=== PATIENT | male | born 1970 | race Caucasian/White ===

== ENCOUNTER 2017-09-18 10:31 | Observation (INO) | payer SELFPAY ==
[~2017-09-18] VITALS: Ht 172.7 cm; Wt 76.0 kg
[~2017-09-18 10:31] MED LIST: MECL-62 PO
[2017-09-18 10:37] VITALS: BP 130/95; PULSE 73; RESP 18; TEMP 98.1; O2SAT 100
[2017-09-18 10:41] VITALS: RESP 18; O2SAT 100
[2017-09-18] MEDS ORDERED: SODIUM CHLORIDE 0.9% FLUSH 10 ML FLUSH IVF PRN (10:45)
--- NOTE | 2017-09-18 11:01 | PD ---
HPI Chief Complaint: Chest Pain Time Seen by Provider: 10:38 Travel History International Travel<30 days: No Contact w/Intl Traveler<30days: No Traveled to known affect area: No History of Present Illness HPI Patient comes in stating that while he was at work he developed chest pain substernal nonradiating, 8 out of 10, associated with diaphoresis, shortness of breath, and was unable to continue working due to the pain. The pain was severe /sharp and pressure-like immediately upon coming on worse level was 8 out of 10 , and approximately 5 minutes or less and the pain resolved and patient was able to return to his normal activities however patient's coworkers noted and asked the patient to come to the ER to get further evaluated. Per patient he states that he had something similar last week as well but he did not seek any care. Allergies to penicillin apparently though he does not recall what the reaction was because it was along. Past medical history: Patient states that he does not have any major medical history nor any surgical history. He did used to have a history of smoking 2 pack per day but according to him he quit last week. PFSH Past Medical History ?: Not Social History Alcohol Use: No Tobacco Use: Yes (quit 2 weeks ago, used to smoke 1 ppd) Substance Use: No Allergies-Medications (Allergen,Severity, Reaction): Coded Allergies: penicillin G (Unverified Allergy, Unknown, 03/24/17) Reported Meds & Prescriptions Reported Meds & Active Scripts Active Hydrochlorothiazide 25 Mg Tab 25 Mg PO DAILY Reported Tylenol (Acetaminophen) 325 Mg Tab 325 Mg PO ONCE PRN Review of Systems General / Constitutional: No: Fever Eyes: No: Visual changes HENT: No: Headaches Cardiovascular: Positive: Chest Pain or Discomfort, Diaphoresis Respiratory: Positive: Shortness of Breath Gastrointestinal: No: Abdominal Pain Genitourinary: No: Dysuria Musculoskeletal: No: Pain Skin: No Rash Neurologic: No: Weakness Psychiatric: No: Depression Endocrine: No: Polydipsia Hematologic/Lymphatic: No: Easy Bruising Physical Exam Narrative GENERAL: SKIN: Warm and dry. HEAD: Atraumatic. Normocephalic. EYES: Pupils equal and round. No scleral icterus. No injection or drainage. ENT: No nasal bleeding or discharge. Mucous membranes pink and moist. NECK: Trachea midline. No JVD. CARDIOVASCULAR: Regular rate and rhythm. RESPIRATORY: No accessory muscle use. Clear to auscultation. Breath sounds equal bilaterally. GASTROINTESTINAL: Abdomen soft, non-tender, nondistended. MUSCULOSKELETAL: Extremities without clubbing, cyanosis, or edema. No obvious deformities. NEUROLOGICAL: Awake and alert. No obvious cranial nerve deficits. Motor grossly within normal limits. Five out of 5 muscle strength in the arms and legs. Normal speech. PSYCHIATRIC: Appropriate mood and affect; insight and judgment normal. Data Data Last Documented VS Vital Signs Date Time Temp Pulse Resp B/P (MAP) Pulse Ox O2 Delivery O2 Flow Rate FiO2 09/18/17 10:41 18 100 Nasal Cannula 2.00 09/18/17 10:37 73 09/18/17 10:37 98.1 Orders Orders Electrocardiogram (09/18/17 10:39) B-Type Natriuretic Peptide (09/18/17 10:39) Ckmb (Isoenzyme) Profile (09/18/17 10:39) Complete Blood Count With Diff (09/18/17 10:39) Comprehensive Metabolic Panel (09/18/17 10:39) D-Dimer (09/18/17 10:39) Prothrombin Time / Inr (Pt) (09/18/17 10:39) Act Partial Throm Time (Ptt) (09/18/17 10:39) Troponin I (09/18/17 10:39) Lipase (09/18/17 10:39) Chest, Single Ap (09/18/17 10:39) Ecg Monitoring (09/18/17 10:39) Iv Access Insert/Monitor (09/18/17 10:39) Oximetry (09/18/17 10:39) Oxygen Administration (09/18/17 10:39) Sodium Chloride 0.9% Flush (Ns Flush) (09/18/17 10:45) CKMB (09/18/17 10:43) CKMB% (09/18/17 10:43) Admit Order (Ed Use Only) (09/18/17 11:59) Labs Laboratory Tests Test 09/18/17 10:43 White Blood Count 7.3 TH/MM3 Red Blood Count 5.10 MIL/MM3 Hemoglobin 14.7 GM/DL Hematocrit 43.4 % Mean Corpuscular Volume 85.1 FL Mean Corpuscular Hemoglobin 28.9 PG Mean Corpuscular Hemoglobin Concent 34.0 % Red Cell Distribution Width 13.6 % Platelet Count 201 TH/MM3 Mean Platelet Volume 10.2 FL Neutrophils (%) (Auto) 54.6 % Lymphocytes (%) (Auto) 31.5 % Monocytes (%) (Auto) 11.4 % Eosinophils (%) (Auto) 1.9 % Basophils (%) (Auto) 0.6 % Neutrophils # (Auto) 4.0 TH/MM3 Lymphocytes # (Auto) 2.3 TH/MM3 Monocytes # (Auto) 0.8 TH/MM3 Eosinophils # (Auto) 0.1 TH/MM3 Basophils # (Auto) 0.0 TH/MM3 CBC Comment DIFF FINAL Differential Comment Prothrombin Time 10.7 SEC Prothromb Time International Ratio 1.1 RATIO Activated Partial Thromboplast Time 27.9 SEC D-Dimer Quantitative (PE/DVT) 0.24 MG/L FEU Blood Urea Nitrogen 18 MG/DL Creatinine 1.31 MG/DL Random Glucose 84 MG/DL Total Protein 7.4 GM/DL Albumin 3.8 GM/DL Calcium Level 9.1 MG/DL Alkaline Phosphatase 103 U/L Aspartate Amino Transf (AST/SGOT) 25 U/L Alanine Aminotransferase (ALT/SGPT) 67 U/L Total Bilirubin 0.3 MG/DL Sodium Level 137 MEQ/L Potassium Level 3.9 MEQ/L Chloride Level 103 MEQ/L Carbon Dioxide Level 24.2 MEQ/L Anion Gap 10 MEQ/L Estimat Glomerular Filtration Rate 59 ML/MIN Total Creatine Kinase 182 U/L Creatine Kinase MB 1.3 NG/ML Troponin I LESS THAN 0.02 NG/ML B-Type Natriuretic Peptide 9 PG/ML Lipase 74 U/L [facility] Medical Decision Making Medical Screen Exam Complete: Yes Emergency Medical Condition: Yes Medical Record Reviewed: Yes Interpretation(s) Pulse ox: Excellent PLEtH wave. 9798% on room air which is within normal limits EKG: Normal sinus rhythm, 81 bpm, normal intervals, non-STEMI pattern noted. Some motion artifact noted. Differential Diagnosis FL versus non-STEMI versus pneumothorax versus PE versus pericardial effusion Narrative Course cbc neg for leukocytosis, anemia or platelet abnl....cmp is wnl and first troponin neg, d dimer neg. ekg nondiagnostic, however with risk factors of smoking, presenting clinical signs and no pcp I believe it most prudent to observe [employer] for further testing Diagnosis Primary Impression: Chest pain, rule out acute myocardial infarction Admitting Information Admitting Physician Requests: Observation Scripts Hydrochlorothiazide (Hydrochlorothiazide) 25 Mg Tab 25 MG PO DAILY for Blood Pressure Management, #30 TAB 1 Refill Prov: Vandana Ordonez 09/18/17 John Gross MD Sep 18, 2017 11:01
[2017-09-18 11:05] LABS: BASOPHIL % 0.6 % (0.0-2.0); EOSINOPHIL # 0.1 TH/MM3 (0-0.4); EOSINOPHIL % 1.9 % (0.0-4.0); HEMATOCRIT 43.4 % (39.0-51.0); HEMOGLOBIN 14.7 GM/DL (13.0-17.0); LYMPH % 31.5 % (9.0-44.0); LYMPHOCYTE # 2.3 TH/MM3 (1.0-4.8); MEAN CELL VOLUME 85.1 FL (80.0-100.0); MEAN CORPUSCULAR HEMOGLOBIN 28.9 PG (27.0-34.0); MEAN PLATELET VOLUME 10.2 FL (7.0-11.0); MONO % 11.4 % (0.0-8.0); MONOCYTE # 0.8 TH/MM3 (0-0.9); NEUT % 54.6 % (16.0-70.0); PLATELET COUNT 201 TH/MM3 (150-450); RED CELL DISTRIBUTION WIDTH 13.6 % (11.6-17.2); WHITE BLOOD COUNT 7.3 TH/MM3 (4.0-11.0)
[2017-09-18] MEDS ORDERED: TYLE325T PO (11:09)
[2017-09-18 11:14] LABS: INTERNATIONAL NORMALIZED RATIO 1.1 RATIO; PROTHROMBIN TIME - PATIENT 10.7 SEC (9.8-11.6)
[2017-09-18 11:16] LABS: D-DIMER 0.24 MG/L FEU (0.00-0.50)
[2017-09-18 11:20] LABS: ALBUMIN 3.8 GM/DL (3.4-5.0); ALT (GPT) 67 U/L (12-78); AST (GOT) 25 U/L (15-37); BICARBONATE 24.2 MEQ/L (21.0-32.0); BLOOD UREA NITROGEN 18 MG/DL (7-18); CALCIUM 9.1 MG/DL (8.5-10.1); CHLORIDE 103 MEQ/L (98-107); CREATININE 1.31 MG/DL (0.60-1.30); GLOMERULAR FILTRATION RATE 59 ML/MIN (>89); GLUCOSE,RANDOM 84 MG/DL (74-106); SODIUM (NA) 137 MEQ/L (136-145)
[2017-09-18 11:24] LABS: ALKALINE PHOSPHATASE 103 U/L (45-117); TOTAL BILIRUBIN ADULT 0.3 MG/DL (0.2-1.0); TOTAL PROTEIN 7.4 GM/DL (6.4-8.2); TROPONIN I LESS THAN 0.02 NG/ML (0.02-0.05)
--- NOTE | 2017-09-18 12:05 | RADRPT ---
EXAM DATE/TIME: 09/18/2017 11:00 [place] COMPARISON: No previous studies available for comparison. INDICATIONS : Chest pain and dizziness. MEDICAL HISTORY : None. SURGICAL HISTORY : None. ENCOUNTER: Initial ACUITY: 1 day PAIN SCORE: 3/10 LOCATION: Bilateral chest FINDINGS: A single view of the chest demonstrates the lungs to be symmetrically aerated without evidence of mas s, infiltrate or effusion. The cardiomediastinal contours are unremarkable. Osseous structures are intact. CONCLUSION: No acute disease. Harsha Campbell MD on September 18, 2017 at 12:03 Board Certified Radiologist. This report was verified electronically.
[2017-09-18] MEDS ORDERED: ACETAMINOPHEN 500 MG CPLT PO PRN (13:15)
[2017-09-18] MEDS ORDERED: ONDANSETRON HCL 4 MG/2 ML VIAL IV PUSH PRN (13:15)
[2017-09-18] MEDS ORDERED: NITROGLYCERIN 0.4 MG SL 25 TABS/BTL SL PRN (13:15)
--- NOTE | 2017-09-18 14:41 | EKG ---
Date Performed: 09/18/2017 Time Performed: 10:33:29 PTAGE: 46 years EKG: Sinus rhythm Since previous tracing, no significant change noted NORMAL ECG PREVIOUS TRACING : 08/03/2016 16.53 DOCTOR: Diamond Ruggiero Interpretating Date/Time 09/18/2017 14:40:35
--- NOTE | 2017-09-18 14:59 | HHI.HP ---
HPI Primary Care Physician No Primary Care Physician Chief Complaint Chest pain History of Present Illness 46-year-old male with known known past medical history presents to emergency room for further evaluation chest pain. Onset 10:30 AM. Location substernal. Characterized as a quick sharp pain. Moderate in severity. No radiation. Duration lasted 1 minute. Associated symptom of lightheadedness. Denied nausea , vomiting, dyspnea, or diaphoresis. Did not hurt to take a deep breath, no particular movement may pain better or worse. Approximately 5 minutes later developed "clamminess and felt shaky." No known precipitating or relieving factors. No current chest pain. Review of Systems General: No fatigue,weakness, fever, chills, or recent illness change in appetite. Has been adjusted health. HEENT: No CASAREZ, no vision changes, no nasal congestion or drainage, no dysphasia CV: As stated above. No current chest pain or pressure. No palpitations, intermittent leg pain, or dizziness RESP: No SOB, cough, wheeze, recent URI. GI: No nausea, vomiting, bowel changes, diarrhea, constipation, pain, distention , melena, or blood in the stool. No change in appetite, no unintentional weight gain or weight loss. : No dysuria, urgency, frequency EXT: No lower leg edema, no paraesthesias MS: No discomfort, injury, trauma, recent fall, or change in ROM. NEURO: No dizziness, difficulty with balance, LOC, motor/sensory deficits PSYCH: No anxiety, depression, suicidal ideation SKIN: No rashes, no concerning lesions Past Family Social History Allergies: Coded Allergies: penicillin G (Unverified Allergy, Unknown, 03/24/17) Past Medical History None Past Surgical History None Reported Medications Reported Meds & Active Scripts Active Reported Tylenol (Acetaminophen) 325 Mg Tab 325 Mg PO ONCE PRN Active Ordered Medications Current Medications Medications (Trade) Dose Ordered Sig/Jarad Route Start Time Stop Time Status Last Admin (NS Flush) 2 ml UNSCH PRN IVF 09/18/17 10:45 (NS Flush) 2 ml BID IV FLUSH 09/18/17 21:00 (Tylenol) 500 mg Q4H PRN PO 09/18/17 13:15 (Zofran Inj) 4 mg Q6H PRN IV PUSH 09/18/17 13:15 (Nitrostat Sl) 0.4 mg Q5M PRN SL 09/18/17 13:15 (Aspirin) 325 mg DAILY PO 09/19/17 09:00 Family History Noncontributory for early as a cardiovascular disease. Social History No known hypertension, diabetes, or hyperlipidemia. Recently quit smoking. 30 pack year history. Rare alcohol. Denies any illegal drug use. . Past Cardiac testing None Physical Exam Vital Signs Vital Signs Date Time Temp Pulse Resp B/P (MAP) Pulse Ox O2 Delivery O2 Flow Rate FiO2 09/18/17 10:41 18 100 Nasal Cannula 2.00 09/18/17 10:41 99 Nasal Cannula 2.00 09/18/17 10:37 73 18 100 Room Air 09/18/17 10:37 98.1 73 18 130/95 (107) 100 Room Air Physical Exam GENERAL: Alert WN, WD, NAD, pleasant, male HEAD: NC, AT EYES: Sclera clear, conjunctiva without injection, pupils equal and round ENT: Mucous membranes pink and moist NECK: Supple, no masses, trachea midline CV: RRR, without murmur, rub, gallop, no JVD, S1-S2 no S3-S4. No carotid bruits. Chest wall nontender with palpation. RESP: Clear lungs throughout bilateral, no crackles, wheeze, rhonchi, symmetrical chest rise, nonlabored, able to speak in full sentences ABD: Soft, NT, ND, no masses, positive bowel tones EXT: Pulses +24, no dependent edema MS: Normal tone 4 extremities, no obvious deformities, full range of motion NEURO: CN II through CN XII grossly intact, motor strength 5/5, gait WNL PSYCH: A+O 3, pleasant affect, appropriate speech, appropriate mood and affect , insight and judgment SKIN: Normal turgor, normal texture, no lesions, no rashes, brisk cap refill, even hair distribution Laboratory Laboratory Tests Test 09/18/17 10:43 White Blood Count 7.3 Red Blood Count 5.10 Hemoglobin 14.7 Hematocrit 43.4 Mean Corpuscular Volume 85.1 Mean Corpuscular Hemoglobin 28.9 Mean Corpuscular Hemoglobin Concent 34.0 Red Cell Distribution Width 13.6 Platelet Count 201 Mean Platelet Volume 10.2 Neutrophils (%) (Auto) 54.6 Lymphocytes (%) (Auto) 31.5 Monocytes (%) (Auto) 11.4 Eosinophils (%) (Auto) 1.9 Basophils (%) (Auto) 0.6 Neutrophils # (Auto) 4.0 Lymphocytes # (Auto) 2.3 Monocytes # (Auto) 0.8 Eosinophils # (Auto) 0.1 Basophils # (Auto) 0.0 CBC Comment DIFF FINAL Differential Comment Prothrombin Time 10.7 Prothromb Time International Ratio 1.1 Activated Partial Thromboplast Time 27.9 D-Dimer Quantitative (PE/DVT) 0.24 Blood Urea Nitrogen 18 Creatinine 1.31 Random Glucose 84 Total Protein 7.4 Albumin 3.8 Calcium Level 9.1 Alkaline Phosphatase 103 Aspartate Amino Transf (AST/SGOT) 25 Alanine Aminotransferase (ALT/SGPT) 67 Total Bilirubin 0.3 Sodium Level 137 Potassium Level 3.9 Chloride Level 103 Carbon Dioxide Level 24.2 Anion Gap 10 Estimat Glomerular Filtration Rate 59 Total Creatine Kinase 182 Creatine Kinase MB 1.3 Troponin I LESS THAN 0.02 B-Type Natriuretic Peptide 9 Lipase 74 Result Diagram: 09/18/17 1043 09/18/17 1043 Imaging Last 48 hours Impressions Chest X-Ray 09/18/17 1039 Signed Impressions: Service Date/Time: Monday, September 18, 2017 11:00 - CONCLUSION: No acute disease. Harsha Campbell MD Course EKG NSR, no acute T-segment changes Caprini VTE Risk Assessment Caprini VTE Risk Assessment: No/Low Risk (score <= 1) Caprini Risk Assessment Model Point Value = 1 Point Value = 2 Point Value = 3 Point Value = 5 Age 41-60 Minor surgery BMI > 25 kg/m2 Swollen legs Varicose veins or History of unexplained or recurrent spontaneous Oral contraceptives or hormone replacement Sepsis (< 1 month) Serious lung disease, including pneumonia (< 1 month) Abnormal pulmonary function Acute myocardial infarction Congestive heart failure (< 1 month) History of inflammatory bowel disease Medical patient at bed rest Age 61-74 Arthroscopic surgery Major open surgery (> 45 min) Laparoscopic surgery (> 45 min) Malignancy Confined to bed (> 72 hours) Immobilizing plaster cast Central venous access Age >= 75 History of VTE Family history of VTE Factor V Leiden Prothrombin [id number] Lupus anticoagulant Anticardiolipin antibodies Elevated serum homocysteine Heparin-induced thrombocytopenia Other congenital or acquired thrombophilia Stroke (< 1 month) Elective arthroplasty Hip, pelvis, or leg fracture Acute spinal cord injury (< 1 month) Prophylaxis Regimen Total Risk Factor Score Risk Level Prophylaxis Regimen 0-1 Low Early ambulation 2 Moderate Order ONE of the following: *Sequential Compression Device (SCD) *Heparin 5000 units SQ BID 3-4 Higher Order ONE of the following medications: *Heparin 5000 units SQ TID *Enoxaparin/Lovenox 40 mg SQ daily (WT < 150 kg, CrCl > 30 mL/min) *Enoxaparin/Lovenox 30 mg SQ daily (WT < 150 kg, CrCl > 10-29 mL/min) *Enoxaparin/Lovenox 30 mg SQ BID (WT < 150 kg, CrCl > 30 mL/min) AND/OR *Sequential Compression Device (SCD) 5 or more Highest Order ONE of the following medications: *Heparin 5000 units SQ TID (Preferred with Epidurals) *Enoxaparin/Lovenox 40 mg SQ daily (WT < 150 kg, CrCl > 30 mL/min) *Enoxaparin/Lovenox 30 mg SQ daily (WT < 150 kg, CrCl > 10-29 mL/min) *Enoxaparin/Lovenox 30 mg SQ BID (WT < 150 kg, CrCl > 30 mL/min) AND *Sequential Compression Device (SCD) Assessment and Plan Assessment and Plan Atypical chest pain-admitted to chest pain center. Ruled out with 2 sets of EKGs and cardiac enzymes. Seen and evaluated by Dr. Shawn Atkinson. Proceed with exercise stress test this evening. If unremarkable complaints discharge home with follow-up with PCP. Strongly encouraged and stressed the importance to establish with a PCP for baseline blood work and repeat BMP due to mild renal insufficiency.. Discussed local clinics such as [facility] or [facility] due to no insurance. Vandana Ordonez Sep 18, 2017 14:59
[2017-09-18 15:47] LABS: TROPONIN I LESS THAN 0.02 NG/ML (0.02-0.05)
[2017-09-18 17:59] VITALS: PULSE 69
[2017-09-18 18:09] LABS: TROPONIN I LESS THAN 0.02 NG/ML (0.02-0.05)
--- NOTE | 2017-09-18 18:39 | HHI.DCPOC ---
Discharge Care Plan Diagnosis: (1) Atypical chest pain (2) Hypertension (3) Mild renal insufficiency Goals to Promote Your Health * To prevent worsening of your condition and complications * To maintain your health at the optimal level Directions to Meet Your Goals Take your medications as prescribed Follow your dietary instruction Follow activity as directed Keep your appointments as scheduled Take your immunizations and boosters as scheduled If your symptoms worsen call your PCP, if no PCP go to Urgent Care Center or Emergency Room Smoking is Dangerous to Your Health. Avoid second hand smoke Call the 24-hour hour crisis hotline for domestic abuse at Vandana Ordonez Sep 18, 2017 18:39
[2017-09-18] MEDS ORDERED: LISI10TA3 PO (18:40)
[2017-09-18] MEDS ORDERED: HYDR25TA5 PO (18:43)
[2017-09-18] MEDS ORDERED: SODIUM CHLORIDE 0.9% FLUSH 10 ML FLUSH IV FLUSH SCH (21:00)
[2017-09-19] MEDS ORDERED: ASPIRIN 325 MG TAB PO SCH (09:00)
--- NOTE | 2017-09-19 16:28 | EKG ---
Date Performed: 09/18/2017 Time Performed: 17:40:33 PTAGE: 46 years EKG: Sinus rhythm NORMAL ECG PREVIOUS TRACING : 09/18/2017 14.43 DOCTOR: Radu Robles Interpretating Date/Time 09/19/2017 16:26:36
--- NOTE | 2017-09-19 16:34 | TR ---
Date Performed: 09/18/2017 Time Performed: 18:07:44 DOCTOR: Radu Robles DRUG LIST: CLINICAL HISTORY: REASON FOR TEST: Chest pain R/O FL REASON FOR ENDING: OBSERVATION: CONCLUSION: Negro protocol completed. Stopped sec to reaching target heart rate and leg fatigue. Maximum OG=575 % Target HR Achieved=87.0% Maximum ER=719/124. No reprod chest pain. No ectopy. No st t segment changes diagnostic of ischemia. Hypertensive bp response. Good exercise response. Recovery quick and unremarkable. COMMENTS:
--- NOTE | 2017-09-20 00:04 | EKG ---
Date Performed: 09/18/2017 Time Performed: 14:43:57 PTAGE: 46 years EKG: SINUS BRADYCARDIA NON-SPECIFIC ST ELEVATION INFERIORLY, CLINICAL CORRELATION NECESSARY PREVIOUS TRACING : 09/18/2017 10.33 Since the prior tracing, there has been no significan t change DOCTOR: Kevin Villar Interpretating Date/Time 09/20/2017 00:03:39
== END 2017-09-18 20:58 | disposition home or self-care (01) ==
LOC: NEPC 10:31 → NEDA 12:03 → NEPHCDU 15:46
PROVIDERS: ADMIT Internal Medicine Cardiovascular Disease; ATTEND Internal Medicine Cardiovascular Disease
DX: R07.89 Other chest pain (principal); N28.9 Disorder of kidney and ureter, unspecified; R42 Dizziness and giddiness; R00.1 Bradycardia, unspecified; R06.02 Shortness of breath; R61 Generalized hyperhidrosis; I10 Essential (primary) hypertension; Z79.899 Other long term (current) drug therapy; Z87.891 Personal history of nicotine dependence; Z88.0 Allergy status to penicillin
CPT/HCPCS: 71045; 80053; 82550; 82552; 83690; 83880; 84484; 85025; 85379; 85610; 85730; 93005; 93017; 99285; G0378